=== PATIENT | male | born 2000 | race Caucasian/White ===

== ENCOUNTER → 2023-06-23 10:34 | Outpatient (BNVA) | payer OTHER, SELFPAY | PROVIDERS: Visit Provider Physician Assistant Medical | DX: S62.525A Nondisplaced fracture of distal phalanx of left thumb, initial encounter for closed fracture (principal); W31.1XXA Contact with metalworking machines, initial encounter | CPT/HCPCS: 99203 ==

== ENCOUNTER → 2023-06-27 12:50 | Outpatient (BNVA) | payer OTHER, SELFPAY | PROVIDERS: Visit Provider Internal Medicine | DX: S62.525A Nondisplaced fracture of distal phalanx of left thumb, initial encounter for closed fracture (principal); W31.1XXA Contact with metalworking machines, initial encounter | CPT/HCPCS: 99213 ==

== ENCOUNTER → 2023-07-04 10:08 | Outpatient (BNVA) | payer OTHER, SELFPAY | PROVIDERS: Visit Provider Internal Medicine | DX: S62.525A Nondisplaced fracture of distal phalanx of left thumb, initial encounter for closed fracture (principal); W31.1XXA Contact with metalworking machines, initial encounter | CPT/HCPCS: 99213 ==

== ENCOUNTER 2023-07-07 09:56 | Outpatient (REF) | payer OTHER, SELFPAY ==
--- NOTE | ~2023-07-07 | XR_ITS ---
EXAMINATION: XR HAND, LEFT CLINICAL INFORMATION: Left hand pain COMPARISON: 06/23/2023 TECHNIQUE: PA, lateral, and oblique views of the left hand. FINDINGS: Again seen is an avulsion fracture at the medial margin of the thumb distal phalangeal base with extension into the IP joint. The fragment is minimally displaced (1 mm). No new fractures are identified. Soft tissues are swollen. No osseous bridging. Joints otherwise appear well-preserved. XR/XR hand LT min 3V IMPRESSION: Unchanged minimal displaced avulsion fracture at the medial margin of the thumb distal phalangeal base at the IP joint.
== END 2023-07-07 09:57 | disposition home or self-care (01) ==
LOC: HO.HOSX 09:56
PROVIDERS: Visit Provider Physician Assistant
DX: M79.642 Pain in left hand (principal)
CPT/HCPCS: 73130

== ENCOUNTER 2023-07-07 14:25 | Outpatient (AMB) | payer OTHER, SELFPAY ==
--- NOTE | 2023-07-07 14:37 | MHC.OFFVIS ---
Intake Vital Signs 07/07/23 14:41 Height 5 ft 5 in Weight 160 lb BMI 26.6 Intake Visit Reasons: fc- Fx base of distal phalanx L thumb Intake Note: Myles a 23 year old WC. 06/23/23. using drill press steel caught glove pulling his hand in. Currently pain comes with movement of thumb, tender to the touch. Denies numbness or tingling. He continues to work with restrictions. He was placed in a splint from work connection. Allergies No Known Allergies Allergy (Verified 07/07/23 14:40) HPI fc- Fx base of distal phalanx L thumb HPI Details Mr. Coulter is a 23-year-old [id number]-zcks-[id number] male who presents the office today for evaluation of left thumb injury that happened roughly 2 weeks ago at work. He reports that his glove got stuck in a drill press. He has been in a short thumb spica splint that was placed while in the emergency department. [facility] Social History (Updated 07/07/23 @ 14:41 by Jessy Gutiérrez [place]) Patient Tobacco Use Status: Never used Tobacco Current occupation: manufacturing, right hand dominant Review of Systems Const All systems reviewed & are unremarkable except as noted in HPI and below Physical Exam Vital Signs: BMI result Body Mass Index 26.6 Const General: cooperative, healthy appearing and no acute distress Resp Effort & Inspection: normal respiratory effort and able to speak in complete sentences Cardio Rate: regular rate Peripheral pulses: Peripheral pulses 2+ throughout GI Palpation (GI): Soft to palpation Skin Lesions: no lesions Rashes: no rashes Extrem Other: Left thumb normal to inspection no ecchymosis erythema or edema. Tenderness to palpation over the ulnar aspect of the IP joint. No laxity with varus or valgus strain at the IP joint. Able to flex and extend. No tenderness to palpation at the CMC joint or range of motion restrictions. Sensation is intact. Cap refill is brisk. Assessment & Plan Assessment & Plan (1) Thumb injury: Onset Date: ~06/23/23 Code(s): S69.90XA - Unspecified injury of unspecified wrist, hand and finger(s), initial encounter (2) Avulsion fracture of thumb: Code(s): S62.509A - Fracture of unspecified phalanx of unspecified thumb, initial encounter for closed fracture Plan Mr. Coulter is a 23-year-old [id number] male who presents the office today for evaluation of left thumb injury that happened roughly 2 weeks ago at work. He reports that his glove got stuck in a drill press. He has been in a short thumb spica splint that was placed while in the emergency department. Patient was placed in a finger immobilizer only mobilizing the IP joint and leaving the CMC joint free for motion. I educated the patient no heavy lifting more than a coffee cup her cellphone. He may come out of the splint to work on gentle range of motion. I would like to see him back in 3 weeks for [id number] check with repeat x-rays sooner if needed. X-rays obtained the office today reveal redemonstration of avulsion fracture distal phalanx left thumb. Orders: Orders XR hand LT min 3V Today M79.643 - Pain in unspecified hand Coding Level of Care Code New Pt Level 4 (22760) Diagnoses Thumb injury S69.90XA Avulsion fracture of thumb S62.509A
[2023-07-07 14:41] VITALS: BMI 26.6
== END 2023-07-07 15:07 | disposition home or self-care (01) ==
PROVIDERS: Visit Provider Physician Assistant
DX: S62.522A Displaced fracture of distal phalanx of left thumb, initial encounter for closed fracture (principal); S69.92XA Unspecified injury of left wrist, hand and finger(s), initial encounter; S60.012A Contusion of left thumb without damage to nail, initial encounter
CPT/HCPCS: 99204

== ENCOUNTER 2023-07-29 15:08 | Outpatient (AMB) | payer OTHER, SELFPAY ==
--- NOTE | 2023-07-29 15:22 | MHC.OFFVIS ---
Intake Vital Signs 07/29/23 15:25 Height 5 ft 5 in Weight 160 lb BMI 26.6 Intake Visit Reasons: OV- Fx base of distal phalanx L thumb Intake Note: Myles is a 23 year old male who presents today for a follow up appointment for his left thumb, DOI 06/23/23. Patient reports still having a little pain. Allergies No Known Allergies Allergy (Verified 07/29/23 15:24) HPI OV- Fx base of distal phalanx L thumb HPI Details 23-year-old right hand dominant male who presents in the office today for a follow up of a left thumb injury, which occurred around 06/23/2023 while he was at work and his glove got stuck in a drill press. The patient reports he is still having a little pain. [facility] Social [facility] Patient Tobacco Use Status: Never used Tobacco Current occupation: manufacturing, right hand dominant Review of Systems Const All systems reviewed & are unremarkable except as noted in HPI and below Physical Exam Vital Signs: BMI result Body Mass Index 26.6 Const General: cooperative, healthy appearing and no acute distress Resp Effort & Inspection: normal respiratory effort and able to speak in complete sentences Cardio Rate: regular rate Peripheral pulses: Peripheral pulses 2+ throughout GI Palpation (GI): Soft to palpation Skin Lesions: no lesions Rashes: no rashes Extrem Other: Left thumb normal to inspection no ecchymosis erythema or edema. Mild tenderness to palpation over the ulnar aspect of the IP joint. No laxity with varus or valgus strain at the IP joint. Able to flex and extend. No tenderness to palpation at the CMC joint or range of motion restrictions. Sensation is intact. Cap refill is brisk. Assessment & Plan Assessment & Plan (1) Thumb injury: Onset Date: ~06/23/23 Code(s): S69.90XA - Unspecified injury of unspecified wrist, hand and finger(s), initial encounter Qualifiers: Encounter type: subsequent encounter Laterality: left Qualified Code(s): S69.92XD - Unspecified injury of left wrist, hand and finger(s), subsequent encounter (2) Avulsion fracture of thumb: Code(s): S62.509A - Fracture of unspecified phalanx of unspecified thumb, initial encounter for closed fracture Qualifiers: Encounter type: subsequent encounter Fracture healing: with routine healing Fracture type: closed Laterality: left Qualified Code(s): S62.502D - Fracture of unspecified phalanx of left thumb, subsequent encounter for fracture with routine healing Plan Mr. Coulter is a 23-year-old right hand dominant male who presents in the office today for a follow up of a left thumb injury, which occurred around 06/23/2023 while he was at work and his glove got stuck in a drill press. The patient reports he is still having a little pain. He will discontinue the use of any immobilize support at this time. I have placed an order for occupational therapy to work on ROM. Follow up will be in 4 weeks for a ROM check, or sooner if needed. X-rays of the left hand obtained while in the office today and reviewed by me, Linh Poe PA-C, revealed routine healing of a left thumb avulsion fracture.. Orders: Orders XR hand LT min 3V 07/29/23 M79.643 - Pain in unspecified hand Patient Instructions: Scribed for Linh Poe PA-C by Briseida Farfan medical instrument cable fabricator, on 07/29/2023 at 3:26 pm, EST. Coding Level of Care Code Global (30312) Diagnoses Injury of left thumb, subsequent encounter S69.92XD Encounter type: subsequent encounter Laterality: left Closed avulsion fracture of left thumb with routine healing, subsequent encounter S62.502D Encounter type: subsequent encounter Fracture healing: with routine healing Fracture type: closed Laterality: left
[2023-07-29 15:25] VITALS: BMI 26.6
== END 2023-07-29 15:55 | disposition home or self-care (01) ==
PROVIDERS: Visit Provider Physician Assistant
DX: S62.522A Displaced fracture of distal phalanx of left thumb, initial encounter for closed fracture (principal); S69.92XA Unspecified injury of left wrist, hand and finger(s), initial encounter; S60.012A Contusion of left thumb without damage to nail, initial encounter
CPT/HCPCS: 99213

== ENCOUNTER 2023-07-29 17:28 | Outpatient (REF) | payer OTHER, SELFPAY ==
--- NOTE | ~2023-07-29 | XR_ITS ---
EXAMINATION: XR HAND, LEFT CLINICAL INFORMATION: Pain in unspecified hand. COMPARISON: 07/07/2023. TECHNIQUE: Four views of the left hand. FINDINGS: Redemonstration of an avulsion fracture at the medial margin of the thumb distal phalangeal base with extension into the IP joint with minimal displacement of the fracture fragment. The fracture line is less visible, suggesting some interval callus formation. There is adjacent soft tissue swelling. Mild degenerative changes 1st carpometacarpal joint with joint space narrowing and hypertrophic change. XR/XR hand LT min 3V IMPRESSION: Healing minimally displaced avulsion fracture at the medial margin of the thumb distal phalangeal base at the IP joint.
== END 2023-07-29 17:29 | disposition home or self-care (01) ==
LOC: HO.HOSX 17:28
PROVIDERS: Visit Provider Physician Assistant
DX: S62.502D Fracture of unspecified phalanx of left thumb, subsequent encounter for fracture with routine healing (principal); S69.92XD Unspecified injury of left wrist, hand and finger(s), subsequent encounter
CPT/HCPCS: 73130; 99212

== ENCOUNTER 2023-09-02 10:36 | Outpatient (REF) | payer OTHER, SELFPAY | END 2023-09-02 10:37 | disposition home or self-care (01) | LOC: HO.HOSX 10:36 | PROVIDERS: Visit Provider Physician Assistant | DX: Z13.89 Encounter for screening for other disorder (principal) ==